=== PATIENT | female | born 1990 ===

== ENCOUNTER 2020-06-09 11:42 | Day surgery (SDC) | payer BC ==
[2020-06-09] MEDS ORDERED: Midazolam 1 MG/ML 2 ML SDV ONE (12:12)
[2020-06-09] MEDS ORDERED: fentaNYL 100 MCG/2 ML SDV ONE ×2 (12:12→13:17)
[2020-06-09] MEDS ORDERED: Propofol 200 MG/20 ML SDV ONE ×2 (12:12→12:55)
[2020-06-09] MEDS ORDERED: Dexamethasone 4 MG/ML 5 ML MDV ONE (12:14)
[2020-06-09] MEDS ORDERED: Ondansetron 4 MG/2 ML SDV ONE (12:14)
[2020-06-09] MEDS ORDERED: Ketorolac 30 MG/ML SDV ONE (12:14)
--- NOTE | 2020-06-09 12:17 | PCM.PREANE ---
Preanesthetic Assessment - Anesthesia/Transfusion/Family Hx Anesthesia History: Prior Anesthesia Without Reaction Transfusion History: No Prior Transfusion(s) - Physical Assessment Height: 5 ft 8 in Weight: 120.202 kg - Allergies Allergies/Adverse Reactions: Allergies Allergy/AdvReac Type Severity Reaction Status Date / Time cefdinir [From Omnicef] Allergy Difficulty Verified 06/09/20 10:01 Swallowing nickel Allergy Rash Verified 06/09/20 09:50 PreAnesthesia Questionnaire - Past Health History Medical/Surgical History: Denies Medical/Surgical History HEENT History: Reports: Other (See Below) Other HEENT History: wears glasses, has dental braces Cardiovascular History: Reports: None Respiratory History: Reports: None Gastrointestinal History: Reports: Other (See Below) Other Gastrointestinal History: occasional heartburn during Genitourinary History: Reports: None [employer]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: Musculoskeletal History: Reports: Back Pain, Chronic, Fracture Other Musculoskeletal History: hx fx collarbone Neurological History: Reports: Migraines Psychiatric History: Reports: Depression Endocrine/Metabolic History: Reports: Obesity/BMI 30+ Hematologic History: Reports: None Immunologic History: Reports: None Oncologic (Cancer) History: Reports: None Dermatologic History: Reports: None - Past Surgical History Head Surgeries/Procedures: Reports: None HEENT Surgical History: Reports: Tonsillectomy Cardiovascular Surgical History: Reports: None Respiratory Surgical History: Reports: None GI Surgical History: Reports: None Female Surgical History: Reports: Breast Biopsy Other Female Surgeries/Procedures: ruby breast biopsies Endocrine Surgical History: Reports: None Neurological Surgical History: Reports: None Musculoskeletal Surgical History: Reports: None Oncologic Surgical History: Reports: Biopsy of Breast Dermatological Surgical History: Reports: None - SUBSTANCE USE Tobacco Use Status *Q: Never Tobacco User - HOME MEDS Home Medications: Home Meds Cholecalciferol (Vitamin D3) [Vitamin D3] 2,000 units PO DAILY 06/09/20 [History] Iron,Carbonyl/Ascorbic Acid [Vitron-C Tablet] 1 tab PO DAILY 06/09/20 [History] Pnv No.95/Ferrous Fum/Folic AC [ Vitamin Tablet] 1 tab PO DAILY 06/09/20 [History] Sertraline [Zoloft] 50 mg PO DAILY 06/09/20 [History]
[2020-06-09] MEDS ORDERED: Lactated Ringers 1,000 ML IV SCH (12:30)
--- NOTE | 2020-06-09 12:45 | PCM.PREANE ---
Preanesthetic Assessment - Anesthesia/Transfusion/Family Hx Anesthesia History: Prior Anesthesia Without Reaction Family History of Anesthesia Reaction: No Transfusion History: No Prior Transfusion(s) - Review of Systems General: No Symptoms Pulmonary: No Symptoms Cardiovascular: No Symptoms Gastrointestinal: No Symptoms Neurological: No Symptoms Other: Reports: None - Physical Assessment NPO Status Date: 06/08/20 Vital Signs: Last Vital Signs Temp Pulse 71 06/09/20 12:24 Resp 15 06/09/20 12:24 BP 123/68 06/09/20 12:24 Pulse Ox 98 06/09/20 12:24 Height: 5 ft 8 in Weight: 120.202 kg ASA Class: 2 Mental Status: Alert & Oriented x3 Airway Class: Mallampati = 2 Dentition: Reports: Normal Dentition ROM/Head Extension: Full Lungs: Clear to Auscultation, Normal Respiratory Effort Cardiovascular: Regular Rate, Regular Rhythm - Lab Values: Laboratory Last Values WBC 8.41 K/uL (4.0-11.0) 06/09/20 12:18 RBC 4.67 M/uL (4.30-5.90) 06/09/20 12:18 Hgb 13.0 g/dL (12.0-16.0) 06/09/20 12:18 Hct 39.9 % (36.0-46.0) 06/09/20 12:18 MCV 85.4 fL (80.0-98.0) 06/09/20 12:18 MCH 27.8 pg (27.0-32.0) 06/09/20 12:18 MCHC 32.6 g/dL (31.0-37.0) 06/09/20 12:18 RDW Std Deviation 43.2 fl (28.0-62.0) 06/09/20 12:18 RDW Coeff of Vitaly 14 % (11.0-15.0) 06/09/20 12:18 Plt Count 271 K/uL (150-400) 06/09/20 12:18 MPV 9.50 fL (7.40-12.00) 06/09/20 12:18 Nucleated RBC % 0.0 /100WBC 06/09/20 12:18 Nucleated RBCs # 0 K/uL 06/09/20 12:18 SARS-CoV-2 RNA (BETH) NEGATIVE (NEGATIVE) 06/09/20 11:10 - Allergies Allergies/Adverse Reactions: Allergies Allergy/AdvReac Type Severity Reaction Status Date / Time cefdinir [From Omnicef] Allergy Difficulty Verified 06/09/20 10:01 Swallowing nickel Allergy Rash Verified 06/09/20 09:50 - Blood Blood Available: No - Anesthesia Plan Pre-Op Medication Ordered: None - Acknowledgements Anesthesia Type Planned: General Anesthesia Pt an Appropriate Candidate for the Planned Anesthesia: Yes Alternatives and Risks of Anesthesia Discussed w Pt/Guardian: Yes Pt/Guardian Understands and Agrees with Anesthesia Plan: Yes PreAnesthesia Questionnaire - Past Health History Medical/Surgical History: Denies Medical/Surgical History HEENT History: Reports: Other (See Below) Other HEENT History: wears glasses, has dental braces Cardiovascular History: Reports: None Respiratory History: Reports: None Gastrointestinal History: Reports: Other (See Below) Other Gastrointestinal History: occasional heartburn during Genitourinary History: Reports: None [employer]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: Musculoskeletal History: Reports: Back Pain, Chronic, Fracture Other Musculoskeletal History: hx fx collarbone Neurological History: Reports: Migraines Psychiatric History: Reports: Depression Endocrine/Metabolic History: Reports: Obesity/BMI 30+ Hematologic History: Reports: None Immunologic History: Reports: None Oncologic (Cancer) History: Reports: None Dermatologic History: Reports: None - Past Surgical History Head Surgeries/Procedures: Reports: None HEENT Surgical History: Reports: Tonsillectomy Cardiovascular Surgical History: Reports: None Respiratory Surgical History: Reports: None GI Surgical History: Reports: None Female Surgical History: Reports: Breast Biopsy Other Female Surgeries/Procedures: ruby breast biopsies Endocrine Surgical History: Reports: None Neurological Surgical History: Reports: None Musculoskeletal Surgical History: Reports: None Oncologic Surgical History: Reports: Biopsy of Breast Dermatological Surgical History: Reports: None - SUBSTANCE USE Tobacco Use Status *Q: Never Tobacco User - HOME MEDS Home Medications: Home Meds Cholecalciferol (Vitamin D3) [Vitamin D3] 2,000 units PO DAILY 06/09/20 [History] Iron,Carbonyl/Ascorbic Acid [Vitron-C Tablet] 1 tab PO DAILY 06/09/20 [History] Pnv No.95/Ferrous Fum/Folic AC [ Vitamin Tablet] 1 tab PO DAILY 06/09/20 [History] Sertraline [Zoloft] 50 mg PO DAILY 06/09/20 [History] - CURRENT (IN HOUSE) MEDS Current Meds: Current Medications Lactated Ringer's (Ringers, Lactated) 1,000 mls @ 100 mls/hr IV ASDIRECTED RADHA Discontinued Medications Dexamethasone (Dexamethasone) Confirm Administered Dose 20 mg .ROUTE .STK-MED ONE Stop: 06/09/20 12:15 Fentanyl (Sublimaze) Confirm Administered Dose 100 mcg .ROUTE .STK-MED ONE Stop: 06/09/20 12:13 Ketorolac Tromethamine (Toradol) Confirm Administered Dose 30 mg .ROUTE .STK-MED ONE Stop: 06/09/20 12:15 Midazolam HCl (Versed 1 Mg/Ml) Confirm Administered Dose 2 mg .ROUTE .STK-MED ONE Stop: 06/09/20 12:13 Ondansetron HCl (Zofran) Confirm Administered Dose 4 mg .ROUTE .STK-MED ONE Stop: 06/09/20 12:15 Propofol (Diprivan 20 Ml) Confirm Administered Dose 200 mg .ROUTE .STK-MED ONE Stop: 06/09/20 12:13
[2020-06-09 12:48] LABS: BLOOD UREA NITROGEN,BUN 11 mg/dL (7.0-18.0); CARBON DIOXIDE,CO2 27.4 mmol/L (21.0-32.0); CHLORIDE,CL 103 mmol/L (98-107); GLUCOSE RANDOM 100 mg/dL (74-106); POTASSIUM,K 4.3 mmol/L (3.5-5.1); SODIUM,NA 139 mmol/L (136-145)
[2020-06-09] MEDS ORDERED: Morphine 4 MG/ML Syringe IVPUSH ONE (13:19)
[2020-06-09] MEDS ORDERED: Acetaminophen/HYDROcodone 325-5 MG Tab PO PRN (13:33)
--- NOTE | 2020-06-09 13:42 | PCM.POSTAN ---
POST ANESTHESIA ASSESSMENT - MENTAL STATUS Mental Status: Alert - VITAL SIGNS Vital Signs: Last Vital Signs Temp Pulse 71 06/09/20 12:24 Resp 15 06/09/20 12:24 BP 123/68 06/09/20 12:24 Pulse Ox 98 06/09/20 12:24 - RESPIRATORY Respiratory Status: Respiratory Rate WNL - CARDIOVASCULAR CV Status: Pulse Rate WNL - GASTROINTESTINAL GI Status: No Symptoms - PAIN Pain Score: 2 (Cramps) - POST OP HYDRATION Hydration Status: Adequate & Stable - OBSERVATIONS Free Text/Narrative:: Doing well. Ready for transfer to .
[2020-06-09 13:44] VITALS: PULSE 65
[2020-06-09 14:01] VITALS: BP 119/66
[2020-06-09] MEDS: Doxycycline 100 MG Cap PO ONE ×2 (14:02→14:03)
--- NOTE | 2020-06-09 14:23 | PCM48HPAN ---
Post Anesthesia Note - EVALUATION WITHIN 48HRS OF ANESTHETIC Vital Signs in Normal Range: Yes Patient Participated in Evaluation: Yes Respiratory Function Stable: Yes Airway Patent: Yes Cardiovascular Function Stable: Yes Hydration Status Stable: Yes Pain Control Satisfactory: Yes (Some cramps.) Nausea and Vomiting Control Satisfactory: Yes Mental Status Recovered: Yes Vital Signs: Last Vital Signs Temp 36.3 C 06/09/20 13:50 Pulse 65 06/09/20 13:50 Resp 15 06/09/20 13:50 BP 119/66 06/09/20 13:50 Pulse Ox 99 06/09/20 13:50 - COMMENTS/OBSERVATIONS Free Text/Narrative:: Doing well. Ready for discharge to home.
--- NOTE | 2020-06-10 06:09 | OR ---
SURGEON: Jun Rock MD DATE OF PROCEDURE: 06/09/2020 INDICATION FOR PROCEDURE: A 29-year-old G3, P2-0-0-2, presenting for suction dilation and curettage due to missed . The patient was diagnosed with a demise in clinic with a fetus measuring 10 weeks and 6 days by crown rump length without heart rate. She previously did have a normal-appearing fetus on ultrasound. Reviewed options with the patient including expectant management, medical management with Cytotec or for D and C. She desired to proceed with D and C. PREOPERATIVE DIAGNOSIS: Missed . POSTOPERATIVE DIAGNOSIS: Missed . PROCEDURES PERFORMED: Suction dilation and curettage. ANESTHESIA: General anesthesia. ANESTHESIOLOGIST: Dr. Cunningham. FINDINGS: Uterus measuring 10-week sized, anteverted and mobile. Normal-appearing vagina and cervix. Products of conception were removed from the uterus and sent to pathology. ESTIMATED BLOOD LOSS: 200 mL. DESCRIPTION OF THE PROCEDURE: The risks of procedure were reviewed with the patient including bleeding, infection, DVT, injury to surrounding organs like bladder, bowel or ureters. The patient was agreeable. Questions answered and consent signed. The patient was brought to the operating room, where she was placed in dorsal lithotomy position, prepped and draped in the usual fashion under general anesthesia. A bimanual exam revealed uterus to be 10-week size, anteverted, and mobile. The cervix was exposed with a vaginal speculum. The vagina was normal appearing. Anterior lip of the cervix was grasped with an Allis clamp. The endocervical canal was progressively dilated with Hegar dilators to a #7. The uterus was sounded and found to be about 10 cm. A size 10 mm suction curette was connected to the suction under adequate pressure. It was placed in the cervix and advanced to the fundus without difficulty. Suction curette was rotated slowly while extracting the products from the uterus. 2 passes were made with the curettage until minimal products were noted. A gentle curettage was then performed with a sharp curette. The endometrium felt gritty and no more products were noted. An additional pass was made with the suction curette to remove all remaining blood clots. The Allis clamp was then removed from the cervix. There was a small area of bleeding that was cauterized with silver nitrate and was hemostatic. Fundal massage was performed on which the uterus was firm and the vaginal bleeding was minimal. The patient tolerated the procedure well. She was brought to the recovery room in stable condition. HELEN MADERA /[id number]
== END 2020-06-09 14:30 | disposition home or self-care (01) ==
LOC: MW.SDS 11:42
PROVIDERS: ATTEND Obstetrics & Gynecology
DX: O02.1 Missed abortion (principal); Z3A.10 10 weeks gestation of pregnancy; Z01.812 Encounter for preprocedural laboratory examination; Z20.822 Contact with and (suspected) exposure to COVID-19; E66.9 Obesity, unspecified; Z98.890 Other specified postprocedural states; Z88.8 Allergy status to other drugs, medicaments and biological substances; Z68.39 Body mass index [BMI] 39.0-39.9, adult
CPT/HCPCS: 36415; 59820; 80053; 85027; 86850; 86900; 86901; 87635; 88305; A9270; J0131; J1885; J2405; J2704; J3010; J7120; 01965; J1100; J2250; U0002

== ENCOUNTER 2021-12-31 20:08 | Inpatient (IN) | payer BC ==
[2021-12-31] MEDS ORDERED: Labetalol 100 MG Tab PO ONE (21:15)
[2021-12-31 21:38] LABS: CARBON DIOXIDE,CO2 25.1 mmol/L (21.0-32.0); POTASSIUM,K 3.8 mmol/L (3.5-5.1)
[2021-12-31] MEDS ORDERED: Sodium Chloride 0.9% 10 ML Syringe FLUSH PRN (21:53)
[2021-12-31] MEDS ORDERED: Sodium Chloride 0.9% 20 ML SDV IV PRN (21:53)
[2021-12-31] MEDS ORDERED: Misoprostol 25 MCG (1/4 of 100 MCG) Tab VAG PRN ×2 (21:53)
[2021-12-31] MEDS ORDERED: Sodium Chloride 0.9% 2.5 ML Syringe FLUSH PRN (21:53)
[2021-12-31] MEDS ORDERED: Methylergonovine 0.2 MG/1 ML Amp IM PRN (21:53)
[2021-12-31] MEDS ORDERED: Tranexamic Acid 1,000 MG in Sodium Chloride 0.9% 100 ML IV PRN (21:53)
[2021-12-31] MEDS ORDERED: Water For Irrigation,Sterile 1,000 ML Container IRR PRN (21:53)
[2021-12-31] MEDS ORDERED: Lidocaine 1% 50 ML MDV INJECT PRN (21:53)
[2021-12-31] MEDS ORDERED: Misoprostol 200 MCG Tab PO PRN (21:53)
[2021-12-31] MEDS ORDERED: Carboprost Tromethamine 250 MCG/1 ML Amp IM PRN (21:53)
[2021-12-31] MEDS ORDERED: Butorphanol 1 MG/ML SDV IVPUSH PRN (21:53)
[2021-12-31] MEDS ORDERED: Terbutaline 1 MG/ML SDV SUBCUT PRN (21:53)
[2021-12-31] MEDS ORDERED: Ampicillin 2 GM in Sodium Chloride 0.9% 100 ML IV ONE (21:53)
[2021-12-31] MEDS ORDERED: Lactated Ringers 1,000 ML IV SCH (22:00)
[2021-12-31] MEDS ORDERED: Oxytocin/0.9 % Sodium Chloride 30 UNIT/500 ML BAG IV SCH ×2 (22:00)
[2021-12-31] MEDS ORDERED: Magnesium Sulfate/Water 4 GM in Premix Bag 1 BAG IV ONE (22:01)
[2021-12-31] MEDS ORDERED: Calcium Gluconate 10% 1 GM/10 ML SDV IVPUSH PRN (22:01)
[2021-12-31] MEDS: Magnesium Sulfate/Water 20 GM/500 ML BAG IV SCH (23:14)
[2022-01-01] MEDS ORDERED: ePHEDrine 50 MG/ML SDV IVPUSH PRN ×2 (01:45)
[2022-01-01] MEDS ORDERED: Ropivacaine HCl/PF 400 MG in Premix Bag 1 BAG EPIDUR SCH (01:45)
[2022-01-01] MEDS ORDERED: Phenylephrine HCl In 0.9% NaCl 1 MG/10 ML Vial IVPUSH SCH (01:45)
[2022-01-01] MEDS ORDERED: Ampicillin 1 GM in Sodium Chloride 0.9% 50 ML IV SCH (03:00)
[2022-01-01] MEDS ORDERED: Docusate Sodium 100 MG Cap PO PRN (08:34)
[2022-01-01] MEDS ORDERED: Bisacodyl 10 MG Supp RECTAL PRN (08:34)
[2022-01-01] MEDS ORDERED: Ibuprofen 800 MG Tab PO PRN (08:34)
[2022-01-01] MEDS ORDERED: Lanolin 100% Cream 7 GM Tube TOP PRN (08:34)
[2022-01-01] MEDS ORDERED: oxyCODONE 5 MG Tab PO PRN (08:34)
[2022-01-01] MEDS ORDERED: Witch Hazel Medicated Pads 40/Jar TOP PRN (08:34)
[2022-01-01] MEDS ORDERED: Benzocaine/Menthol 20%-0.5% Spray 78 GM Cannister TOP PRN (08:34)
[2022-01-01] MEDS ORDERED: Ibuprofen 400 MG Tab PO PRN (08:34)
[2022-01-01] MEDS ORDERED: Acetaminophen 500 MG Tab PO PRN ×2 (08:34)
[2022-01-01] MEDS: Magnesium Sulfate/Water 20 GM/500 ML BAG IV SCH ×2 (08:35→18:23)
[2022-01-01] MEDS: Labetalol 100 MG Tab PO SCH (21:16)
[2022-01-02] MEDS: Magnesium Sulfate/Water 20 GM/500 ML BAG IV SCH (04:10)
[2022-01-02 06:00] LABS: CARBON DIOXIDE,CO2 26.3 mmol/L (21.0-32.0); POTASSIUM,K 4.1 mmol/L (3.5-5.1)
[2022-01-02] MEDS: Labetalol 100 MG Tab PO SCH (08:40)
[2022-01-02 13:49] VITALS: PULSE 80
[2022-01-02 16:12] VITALS: BP 132/71
== END 2022-01-02 18:15 | disposition home or self-care (01) | DRG 560 ==
LOC: MW.OBCHECK 20:08 → MW.OB 20:09 → MW.OBCHECK 21:53 → MW.OB 21:53 → OBSVTOIN 01-01 06:48 → MW.OB 01-01 11:04
PROVIDERS: ADMIT Obstetrics & Gynecology; ATTEND Obstetrics & Gynecology
PROC: 10E0XZZ Delivery of Products of Conception, External Approach (ICD-10-PCS; principal; 2022-01-01)
PROC: 0KQM0ZZ Repair Perineum Muscle, Open Approach (ICD-10-PCS; 2022-01-01)
PROC: 3E0P7VZ Introduction of Hormone into Female Reproductive, Via Natural or Artificial Opening (ICD-10-PCS; 2022-01-01)
DX: O14.14 Severe pre-eclampsia complicating childbirth (principal); O48.0 Post-term pregnancy; Z37.0 Single live birth; O99.214 Obesity complicating childbirth; O77.0 Labor and delivery complicated by meconium in amniotic fluid; Z20.822 Contact with and (suspected) exposure to COVID-19; O70.1 Second degree perineal laceration during delivery; O69.81X0 Labor and delivery complicated by cord around neck, without compression, not applicable or unspecified; E66.01 Morbid (severe) obesity due to excess calories; Z3A.41 41 weeks gestation of pregnancy
CPT/HCPCS: 36415; 59025; 59409; 80053; 82570; 83735; 84156; 84550; 85027; 86592; 86850; 86900; 86901; A9270-GY; J0290; J2001; J2590; J3475; J7120; U0002